=== PATIENT | female | born 1990 ===

== ENCOUNTER 2019-07-30 15:15 | Inpatient (IN) | payer OTHER ==
[~2019-07-30] VITALS: Ht 157.5 cm; Wt 93.9 kg
[2019-08-10] MEDS ORDERED: OBTREX DHA PRE1 EACH PO (10:22)
== END 2019-08-19 16:56 | disposition home or self-care (01) | DRG 788 ==
LOC: O/R 15:15 → OB/GYN 08-14 21:00 → LDR 08-14 21:00 → O/R 08-15 17:54 → OB/GYN 08-15 19:35
PROVIDERS: ADMIT Specialist
PROC: 3E0P7VZ Introduction of Hormone into Female Reproductive, Via Natural or Artificial Opening (ICD-10-PCS; 2019-08-14)
PROC: 3E033VJ Introduction of Other Hormone into Peripheral Vein, Percutaneous Approach (ICD-10-PCS; 2019-08-14)
PROC: 4A1HXCZ Monitoring of Products of Conception, Cardiac Rate, External Approach (ICD-10-PCS; 2019-08-14)
PROC: 10D00Z1 Extraction of Products of Conception, Low, Open Approach (ICD-10-PCS; principal; 2019-08-15 17:00)
DX: O82 Encounter for cesarean delivery without indication (principal); O61.0 Failed medical induction of labor; Z3A.39 39 weeks gestation of pregnancy; Z37.0 Single live birth

== ENCOUNTER 2019-08-10 10:04 | Outpatient (CLI) | payer OTHER ==
[2019-08-10] MEDS ORDERED: OBTREX DHA PRE1 EACH PO (10:22)
== END 2019-08-10 16:19 | disposition home or self-care (01) ==
LOC: OBS/DEL 10:04
DX: O47.1 False labor at or after 37 completed weeks of gestation (principal)

== ENCOUNTER 2019-08-14 18:48 | Outpatient (CLI) | payer OTHER ==
[~2019-08-14 18:48] MED LIST: OBTREX DHA PRE1 EACH PO
== END 2019-08-14 20:59 | disposition still patient (30) ==
LOC: OBS/DEL 18:48
DX: O47.1 False labor at or after 37 completed weeks of gestation (principal); O35.8XX0 Maternal care for other (suspected) fetal abnormality and damage, not applicable or unspecified

== ENCOUNTER 2021-06-03 14:30 | Emergency (ER) | payer OTHER ==
[~2021-06-03] VITALS: Ht 157.5 cm; Wt 88.5 kg
[2021-06-03] MEDS ORDERED: BUSPIRONE HCL7.5 MG PO (15:17)
== END 2021-06-03 19:58 | disposition home or self-care (01) ==
LOC: ER 14:30
DX: R42 Dizziness and giddiness (principal)